=== PATIENT | male | born 1950 | race Caucasian/White ===

== ENCOUNTER 2017-04-12 14:46 | Emergency (ER) | payer MEDICARE ==
[2017-04-12 16:01] LABS: Basophils % (Auto) 0.5 % (0.0-1.8); Eosinophils % (Auto) 3.6 % (0.0-4.3); Hematocrit 41.2 % (35.5-45.6); Hemoglobin 13.6 gm/dl (11.8-15.2); Mean Corpuscular HGB Conc 33 % (32-34); Mean Corpuscular Hemoglobin 27 pg (28-32); Mean Corpuscular Volume 83 fl (84-94); Platelet Count 170 K/mm3 (140-440); Red Blood Count 4.97 M/mm3 (3.65-5.03); Red Cell Distribution Width 13.9 % (13.2-15.2); White Blood Count 9.8 K/mm3 (4.5-11.0)
[2017-04-12 16:16] LABS: Alanine Aminotransferase 15 units/L (7-56); Albumin 4.2 g/dL (3.9-5); Albumin/Globulin Ratio 1.1 %; Alkaline Phosphatase 128 units/L (35-129); Anion Gap 23 mmol/L; BUN/Creatinine Ratio 23.75; Blood Urea Nitrogen 19 mg/dL (9-20); Calcium 9.8 mg/dL (8.4-10.2); Carbon Dioxide 26 mmol/L (22-30); Chloride 95.8 mmol/L (98-107); Glucose 97 mg/dL (75-100); Lipase 35 units/L (13-60); Potassium 4.9 mmol/L (3.6-5.0); Sodium 140 mmol/L (137-145); Total Protein 7.9 g/dL (6.3-8.2)
[2017-04-12 19:13] LABS: Bilirubin,Urine NEG (Negative); Blood,Urine NEG (Negative); Ketones,Urine NEG (Negative); Leukocyte Esterase,Urine NEG (Negative); Mucus,Urine FEW /HPF; Nitrite,Urine NEG (Negative); Protein,Urine <15 mg/dL mg/dL (Negative); Urobilinogen,Urine < 2.0 mg/dL (<2.0)
--- NOTE | 2017-04-12 19:20 | Emergency Department Report ---
ED General Adult HPI - General Chief complaint: Abdominal Pain Stated complaint: BLACK STOOL Time Seen by Provider: 04/12/17 19:05 Source: patient, RN notes reviewed Mode of arrival: Ambulatory Limitations: No Limitations - History of Present Illness Initial comments: This is a 67-year-old male. He is previously unknown to me. Primary care Dr.: Dr. Greenwood Primary care manager supply: Dr. Rosario Past medical history: High cholesterol, hypertension The patient presents to the ER with multiple complaints. The patient's first complaint is distal Achilles tendon and ankle pain over the past 3 weeks. This worsens with physical exertion and decreases with rest. There is no chest pain or shortness of breath. No recent trips greater than 4 hours. No recent hospital admissions. Patient reports doing a lot of heavy lifting The patient's next complaint is black stool. This has been present for one week. The patient reports recently using Pepto-Bismol. He takes aspirin. He does not take other anticoagulation. He is not certain whether or not the black stool started before or after he took the Pepto-Bismol. The patient's next complaint is abdominal fullness. This has been present for 3 weeks. It is intermittent. He reports a decreased appetite. He reports mild unintentional weight loss. He has not had a colonoscopy within the past 10 years that he can recall. -: Gradual Consistency: intermittent Improves with: none Worsens with: none Associated Symptoms: denies: confusion, chest pain, cough, diaphoresis, headaches, loss of appetite, nausea/vomiting, shortness of breath, syncope, weakness - Related Data Allergies Allergy/AdvReac Type Severity Reaction Status Date / Time No Known Allergies Allergy Unverified 04/12/17 15:22 ED Review of Systems ROS: Stated complaint: BLACK STOOL Other details as noted in HPI Constitutional: denies: fever Eyes: denies: eye discharge ENT: denies: epistaxis Respiratory: denies: cough Cardiovascular: denies: chest pain Gastrointestinal: abdominal pain. denies: nausea, vomiting Genitourinary: as per HPI Musculoskeletal: as per HPI, back pain Neurological: denies: headache ED Past Medical Hx - Past Medical History Previous Medical History?: No - Surgical History Past Surgical History?: No - Social History Smoking Status: Never Smoker Substance Use Type: None ED Physical Exam - General Limitations: No Limitations General appearance: alert, in no apparent distress - Head Head exam: Present: atraumatic, normocephalic - Eye Eye exam: Present: normal appearance, EOMI. Absent: nystagmus - ENT ENT exam: Present: normal exam, normal orophraynx, mucous membranes moist, normal external ear exam - Neck Neck exam: Present: normal inspection, full ROM. Absent: tenderness, meningismus - Respiratory Respiratory exam: Present: normal lung sounds bilaterally. Absent: respiratory distress, wheezes, rales, rhonchi, stridor, chest wall tenderness, accessory muscle use, decreased breath sounds, prolonged expiratory - Cardiovascular Cardiovascular Exam: Present: regular rate, normal rhythm, normal heart sounds. Absent: bradycardia, tachycardia, irregular rhythm, systolic murmur, diastolic murmur, rubs, gallop - GI/Abdominal GI/Abdominal exam: Present: soft, normal bowel sounds. Absent: distended, tenderness, guarding, rebound, rigid, pulsatile mass - Rectal Rectal exam: Present: normal inspection, normal rectal tone, heme (-) stool, other (there is brown/black stool that is guaiac negative.) - Extremities Exam Extremities exam: Present: normal inspection, full ROM, normal capillary refill , other (there are 2+ pulses in 4 extremities. The compartments are soft. The patient walks with a steady gait.). Absent: pedal edema, joint swelling, calf tenderness - Back Exam Back exam: Present: normal inspection, full ROM. Absent: tenderness, CVA tenderness (R), CVA tenderness (L), muscle spasm, paraspinal tenderness, vertebral tenderness - Neurological Exam Neurological exam: Present: alert, oriented X3, normal gait, other (Extraocular movements intact. Tongue midline. No facial droop. Facial sensation intact to light touch in the V1, V2, V3 distribution bilaterally. 5 and 5 strength in 4 extremities.. Sensation is intact to light touch in 4 extremities.). Absent : motor sensory deficit - Psychiatric Psychiatric exam: Present: normal affect, normal mood - Skin Skin exam: Present: warm, dry, intact, normal color. Absent: rash ED Course Vital Signs 04/12/17 04/12/17 04/12/17 15:22 18:09 18:10 Temperature 98.6 F Pulse Rate 88 Respiratory 18 Rate Blood Pressure 144/89 139/70 Blood Pressure [Right] O2 Sat by Pulse 100 100 Oximetry 04/12/17 04/12/17 04/12/17 18:20 18:30 18:40 Temperature Pulse Rate Respiratory Rate Blood Pressure 139/70 140/78 140/78 Blood Pressure [Right] O2 Sat by Pulse 100 99 99 Oximetry 04/12/17 04/12/17 19:10 22:22 Temperature 98.6 F Pulse Rate 82 Respiratory 18 18 Rate Blood Pressure Blood Pressure 126/82 [Right] O2 Sat by Pulse 100 100 Oximetry - Reevaluation(s) Reevaluation #1: 04/12/17 20:08 Differential diagnosis: Bilateral lower extremity arthritis, GERD, gastritis, GI bleed, malignancy Assessment and plan: 67-year-old male with multiple complaints. The patient's bilateral lower extremities are unremarkable, they are nontender, the patient walks with a steady gait, has a pulmonary embolus or DVT risk factors, is low risk by well's criteria. Based on the patient's history and physical, I don't believe he requires emergent imaging, and he can follow with a primary care doctor for this. On his rectal examination, his stool is brown and black, but is guaiac negative, and his hemoglobin and hematocrit are unremarkable. These black stools have been going on for 1 week. The patient can follow up with outpatient gastroenterology. Has no abdominal tenderness on my examination, I doubt serious/surgical disease , but we will obtain a CT scan abdomen and pelvis, and reassess. The patient will have to follow-up with gastroenterology. Reevaluation #2: 04/12/17 21:27 CT scan with numerous incidental findings, most likely suggestive of malignancy. The abdomen is soft on repeat examination. There is no right upper quadrant tenderness. There is a negative Giang sign. I think cholecystitis is very unlikely. There is no midline spinal tenderness. There is no fever. Clinically does not appear to be suggestive of discitis. There are numerous incidental findings noted on the CAT scan, but given the patient has been having 3 weeks of abdominal pain, given that he has no fever, given that there is no abdominal tenderness, I suspect his pain is secondary to his malignancy. We will obtain a right upper quadrant ultrasound, and reassess. Reevaluation #3: 04/12/17 22:07 patient is refusing ultrasound. The patient is going to sign out AGAINST MEDICAL ADVICE. The patient is alert and oriented 3. The patient is free from distracting injury. The patient exhibits decision-making capacity. The risks of leaving, including , disability, paralysis, loss of quality of life were discussed with the patient who verbalized understanding. I did offer to admit the patient for observation overnight, and he also declined. That being said, given his lack of tenderness, his duration of symptoms, I think acute cholecystitis is clinically very unlikely, and the CT scan findings are much more likely to be due to an undifferentiated cancer/tumor/malignancy. The patient was counseled to follow up as soon as possible with his primary care doctor, or packaging materials inspector or an oncologist specialist. Return precautions were reviewed. ama witnessed by nurse Sd Jefferson 04/12/17 22:10 04/13/17 01:32 ED Medical Decision Making - Lab Data Result diagrams: 04/12/17 15:44 04/12/17 15:44 Vital Signs 04/12/17 04/12/17 04/12/17 15:22 18:09 18:10 Temperature 98.6 F Pulse Rate 88 Respiratory 18 Rate Blood Pressure 144/89 139/70 O2 Sat by Pulse 100 100 Oximetry 04/12/17 04/12/17 04/12/17 18:20 18:30 18:40 Temperature Pulse Rate Respiratory Rate Blood Pressure 139/70 140/78 140/78 O2 Sat by Pulse 100 99 99 Oximetry 04/12/17 19:10 Temperature Pulse Rate Respiratory 18 Rate Blood Pressure O2 Sat by Pulse 100 Oximetry Lab Results 04/12/17 04/12/17 04/12/17 Range/Units 15:44 15:44 19:04 WBC 9.8 (4.5-11.0) K/mm3 RBC 4.97 (3.65-5.03) M/mm3 Hgb 13.6 (11.8-15.2) gm/dl Hct 41.2 (35.5-45.6) % MCV 83 L (84-94) fl MCH 27 L (28-32) pg MCHC 33 (32-34) % RDW 13.9 (13.2-15.2) % Plt Count 170 (140-440) K/mm3 Lymph % (Auto) 8.5 L (13.4-35.0) % Loving % (Auto) 9.0 H (0.0-7.3) % Eos % (Auto) 3.6 (0.0-4.3) % Baso % (Auto) 0.5 (0.0-1.8) % Lymph # 0.8 L (1.2-5.4) K/mm3 Loving # 0.9 H (0.0-0.8) K/mm3 Eos # 0.4 (0.0-0.4) K/mm3 Baso # 0.0 (0.0-0.1) K/mm3 Seg Neutrophils % 78.4 H (40.0-70.0) % Seg Neutrophils # 7.7 (1.8-7.7) K/mm3 Sodium 140 (137-145) mmol/L Potassium 4.9 (3.6-5.0) mmol/L Chloride 95.8 L (98-107) mmol/L Carbon Dioxide 26 (22-30) mmol/L Anion Gap 23 mmol/L BUN 19 (9-20) mg/dL Creatinine 0.8 (0.8-1.5) mg/dL Estimated GFR > 60 ml/min BUN/Creatinine Ratio 23.75 % Glucose 97 (75-100) mg/dL Calcium 9.8 (8.4-10.2) mg/dL Total Bilirubin 1.00 (0.1-1.2) mg/dL AST 36 (5-40) units/L ALT 15 (7-56) units/L Alkaline Phosphatase 128 (35-129) units/L Total Protein 7.9 (6.3-8.2) g/dL Albumin 4.2 (3.9-5) g/dL Albumin/Globulin Ratio 1.1 % Lipase 35 (13-60) units/L Urine Color Yellow (Yellow) Urine Turbidity Clear (Clear) Urine pH 5.0 (5.0-7.0) Ur Specific [place] 1.020 (1.003-1.030) Urine Protein <15 mg/dl (Negative) mg/dL Urine Glucose (UA) Neg (Negative) mg/dL Urine Ketones Neg (Negative) mg/dL Urine Blood Neg (Negative) Urine Nitrite Neg (Negative) Urine Bilirubin Neg (Negative) Urine Urobilinogen < 2.0 (<2.0) mg/dL Ur Leukocyte Esterase Neg (Negative) Urine WBC (Auto) 1.0 (0.0-6.0) /HPF Urine RBC (Auto) 1.0 (0.0-6.0) /HPF Urine Mucus Few /HPF - EKG Data -: EKG Interpreted by Me EKG shows normal: sinus rhythm - EKG Data When compared to previous EKG there are: previous EKG unavailable 04/12/17 20:07 sinus 83/min left axis Left axis deviation, no prior for comparison, Q waves are noted in the inferior leads. - Radiology Data Radiology results: pending, report reviewed, image reviewed CAT scan of the abdomen and pelvis Liver is enlarged with complex low attenuated multicystic area in the right lobe , indeterminate, may represent manifestations of malignancy such as hepatocellular carcinoma. Metastatic disease also a possibility. There is a moderately dilated gallbladder with small gas bubbles in the lower anterior fundal region. Scattered gallstones noted towards the fundus and suspected trace pericholecystic fluid. There is a gas containing cystic area projecting towards the pancreatic head with an air-fluid level, may be intraparenchymal at the pancreatic head. The exam is limited by oral contrast. The adrenals are normal. Low attenuated probable cystic changes noted in the right mid kidney. Scattered fluid-filled loops of small bowel noted, may reflect ileus. Normal caliber appendix. There is markedly lymphadenopathy. There is stranding between the hepatic flexure of the right lobe of the liver. Severe degenerative changes of the spine are noted. Some degree of discitis is not excludable. Metastatic disease at this location is not excludable. Prominent gallstones, suspicion for acute cholecystitis. Critical care attestation.: If time is entered above; I have spent that time in minutes in the direct care of this critically ill patient, excluding procedure time. ED Disposition Clinical Impression: Abdominal pain Disposition: DC-07 LEFT AGAINST MED ADVICE Is pt being admited?: No Does the pt Need Aspirin: No Condition: Undetermined Instructions: Abdominal Pain (ED) Additional Instructions: As we discussed, laboratory studies were unremarkable. CT scan of the abdomen and pelvis suggested cancer/tumor/malignancy. Return to the ER right away if and when you change your mind. By leaving AGAINST MEDICAL ADVICE, you risked , disability, paralysis, permanent loss of quality of life. The emergency rooms up in 24 hours a day, 7 days a week, it never closes. If you decide to return to the ER, come back right away. If not, follow up as soon as possible with any of the physicians specialists that are listed. Referrals: BRAULIO YAÑEZ MD [Primary Care Provider] - 3-5 Days VEENA ARNDT MD [Staff Physician] - 3-5 Days ANGELES CAO DO [Staff Physician] - 3-5 Days
[2017-04-12] MEDS ORDERED: NACL ONE (19:27)
--- NOTE | 2017-04-12 20:54 | Cat Scan Report ---
FINAL REPORT PROCEDURE: CT ABDOMEN PELVIS W CON TECHNIQUE: Computerized axial tomography of the abdomen and pelvis was performed after the IV injection of iodinated nonionic contrast. HISTORY: epigastcric abd pain COMPARISON: No prior studies are available for comparison. FINDINGS: Visualized lower thorax: No significant abnormality. Liver: Enlarged liver with complex low attenuated multi cystic area in the right lobe of liver primarily involving atleast 25 percent of the overall liver parenchyma with confluent or near confluent area right lobe and central liver and posterior medial right lobe measuring 10 x 13 centimeters. Multiple other lower attenuated areas include the left lobe of liver. Involvement of the uncinate process. The low attenuated areas range from 2 millimeters up to 10 centimeters. This is indeterminate but may reflect manifestations of malignancy such as hepatocellular carcinoma or metastatic disease. Periportal tracking evident. Pneumobilia seen in the central and left lobe area.. Spleen: Moderately enlarged spleen. Gallbladder and biliary system: Moderately dilated gallbladder with small gas bubbles at the lower anterior fundal region. Scattered gallstones towards the fundus 1 centimeter range and layering towards the gallbladder neck 1.5 centimeter range multiple in number. Suspected trace pericholecystic fluid. Pancreas: Gas containing cystic area projects towards the pancreatic head with air-fluid level measuring 2.5 x 3.2 centimeter range may be intraparenchymal at pancreatic head or diverticulum of duodenum projecting at the posterior pancreatic head. Exam limited by lack of oral contrast. Followup and further workup advised. Adrenals: Normal. Kidneys: Low attenuated probable cystic change in the right mid posterior lateral kidney measuring 3.1 x 2.1 centimeters. GI tract: No oral contrast. Scattered fluid filled loops small bowel and gas filled loops small bowel measuring up to 3.2 centimeters left upper quadrant may reflect ileus. Decompressed stomach. Small hiatal hernia.. Normal caliber appendix. Scattered diverticulosis.. Lymph nodes and mesentery: Significant lymphadenopathy including but not limited to madhu hepatis 2.8 x 1.4 centimeters pre pole 1.7 x 1.3 centimeters madhu hepatis mass 2.2 x 2.7 centimeters. Stranding between the hepatic flexure right lobe of liver and upper anterior kidney with brendon capsular thickening of the liver Vasculature: Atherosclerosis. Bladder: Normal. Reproductive organs: Heterogeneous pancreas with internal calcifications. Prominent seminal vesicles.. Peritoneum: Small amount of free fluid in the right pelvis 4 x 3 centimeters could be partially contained .. Musculoskeletal structures: Severe degenerative changes of the thoracolumbar spine endplate irregularity at the T11-T12 slight erosive changes of the right paracentral posterior inferior endplate of T11. Some degree of discitis not excludable. Metastatic disease at this location not excludable. Followup and further workup advised. If there is history or concern of malignancy defer to nuclear medicine bone scan Other: Small bilateral inguinal herniations fat left greater than right.. IMPRESSION: Prominent gallstones and suspicion for possible acute cholecystitis. Consider gallbladder ultrasound Enlarged liver and spleen suggesting portal hypertension as a manifestation of chronic liver disease Extensive low attenuated process in the liver predominately in the central right lobe but scattered throughout the liver as described and is indeterminate. Manifestations of malignancy is the diagnosis of exclusion. Followup and further workup advised. Consider MRI with IV gadolinium Moderate to severe adenopathy as described, including but not limited to madhu hepatis Bowel findings as described limited by lack of oral contrast Cystic mass with air-fluid level projecting at or subjacent to the pancreatic head indeterminate due to lack of oral contrast. Consider pancreatic head abscess or versus projection of duodenal diverticulum just posterior to the pancreatic head T11-12 findings as described. Consider MRI lumbar spine with IV gadolinium
[2017-04-12 22:23] VITALS: BP 126/82
== END 2017-04-12 22:21 | disposition left against medical advice (07) ==
LOC: ED 14:46
DX: R10.9 Unspecified abdominal pain (principal)
CPT/HCPCS: 36415; 74177; 80053; 81001; 82271; 83690; 85025; 93005; 93010; 99284; Q9967